=== PATIENT | female | born 1990 | race Caucasian/White ===

== ENCOUNTER 2020-10-28 03:31 | Emergency (ER) | payer BC, MEDICAID, SELFPAY ==
[2020-10-28 03:33] VITALS: BP 116/68; PULSE 90; RESP 18; TEMP 36.2; O2SAT 100
--- NOTE | 2020-10-28 04:06 | ED.GENADULT ---
HPI - General Adult General Chief complaint: Unspecified Stated complaint: spotting and dizziness while Time Seen by Provider: 10/28/20 03:44 Source: patient Mode of arrival: ambulatory Limitations: no limitations History of Present Illness HPI narrative: This patient is a 30 year old female who presents for evaluation of dizziness and vaginal bleeding. She states tonight she started experiencing dizziness with movement and climbing up ladders. She was at work and she almost fell due to her dizziness so she came to the ER for evaluation. She also reports she develop vaginal spotting at the same time as the dizziness. She denies abdominal pain, vomiting, diarrhea, fever , headache. She found out she was last week with a urine test, but she has not had an ultrasound. Her OBGYN is Dr. Amaya. She reports nausea with this so she is not eating or drinking very much. Related Data Allergies Allergy/AdvReac Type Severity Reaction Status Date / Time bupropion Allergy Severe throat Verified 10/28/20 03:37 closes/ rash cephalexin Allergy Severe rash/throat Verified 10/28/20 03:37 close clindamycin Allergy Severe throat Verified 10/28/20 03:37 close/ rash coconut Allergy Severe rash Verified 10/28/20 03:37 ketorolac Allergy Severe rash/throat Verified 10/28/20 03:37 close naproxen Allergy Severe rash/ Verified 10/28/20 03:37 throat close olanzapine Allergy Severe rash/throat Verified 10/28/20 03:37 close peanut Allergy Severe rash/swelli Verified 10/28/20 03:37 ng tramadol Allergy Severe rash/throat Verified 10/28/20 03:37 close cyclobenzaprine Allergy Hives Verified 10/28/20 03:37 Review of Systems Review of Systems: Narrative: All systems reviewed & are unremarkable except as noted in HPI and below Constitutional: Constitutional: Denies chills and Denies fever(s) ENT: Reports dizziness and Denies neck pain Cardiovascular: Cardiovascular: Denies chest pain with activity and Denies leg edema Respiratory: Respiratory: Denies cough and Denies dyspnea Gastrointestinal: Gastrointestinal: Denies abdominal pain Neurologic: Denies headache(s) [facility] Past Medical History Medical History (Updated 10/28/20 @ 07:01 by Nila Sharif MD) Patient denies medical problems Surgical History Surgical History (Updated 10/28/20 @ 04:10 by Nila Sharif MD) H/O section Social History Social History Gender identity (if verbalized by the patient): Female Sexual Orientation (if Verbalized by the Patient): Straight or Heterosexual Exam Narrative: Exam Narrative: Const: General: cooperative, healthy appearing, no acute distress and well developed HENMT: Head: normal to inspection Ears: hearing grossly normal bilaterally, external ears normal and TM's normal bilaterally Face and sinus: face symmetric Mouth: Yes Normal oral and palatal mucosa present, Yes lip normal, Yes oropharynx normal and Yes moist mucous membranes Resp: Effort & Inspection: normal respiratory effort and able to speak in complete sentences Cardio: Palpation: normal PMI Rate: regular rate Rhythm: regular rhythm GI: GI Palp: Yes Soft to palpation, No Tenderness to palpation present (GI) and No No hepatosplenomegaly present Auscultation: normal bowel sounds Skin: General skin exam: normal color Neuro: General: patient oriented x3, gait normal, moves all extremities and CN's II-XI intact bilaterally Course Reevaluation(s) Reevaluation #1: I Discussed with patient that her test is negative. She has no abdominal pain so will discharge. Her dizziness has resolved. Date: 10/28/20 Time: 06:59 Vital Signs Vital signs: Vital Signs Temperature 97.2 F L 10/28/20 03:33 Pulse Rate 90 10/28/20 03:33 Respiratory Rate 18 10/28/20 03:33 Blood Pressure 116/68 10/28/20 03:33 Pulse Oximetry 100 10/28/20
[2020-10-28 04:34] LABS: Basophils Percent Auto 0.6 % (0.2-1.2); Eosinophils Percent Auto 0.2 % (0-4.4); Hematocrit 35.6 % (37.0-47.0); Hemoglobin 12.2 g/dL (12.0-15.0); Immature Granulocyte Absolute 0.02 K/mm3 (0.00-0.031); Immature Granulocyte Percent A 0.4 % (0-0.5); Lymphocytes Absolute Auto 1.02 K/mm3 (0.9-3.2); Lymphocytes Percent Auto 19.8 % (18.3-44.2); Mean Corpuscular HGB Conc 34.3 g/dl (32-36); Mean Corpuscular Hemoglobin 31.4 pg (26-34); Mean Corpuscular Volume 91.8 fl (80-100); Monocytes Absolute Auto 0.3 K/mm3 (0.1-0.6); Monocytes Percent Auto 6.6 % (2.6-8.5); Neutrophils Absolute Auto 3.7 K/mm3 (1.3-6.7); Neutrophils Percent Auto 72.4 % (45.5-73.1); Platelet Count Result 241 k/mm3 (150-375); Red Blood Count 3.88 M/mm3 (4.2-5.4); Red Cell Distribution Width 12.8 % (11.5-14.5); White Blood Count 5.1 K/mm3 (4.5-10.0)
[2020-10-28 04:46] LABS: Anion Gap 5 mmol/L (8-16); Blood Urea Nitrogen 12 mg/dL (7-17); Calcium 9.1 mg/dL (8.4-10.2); Carbon Dioxide 28 mmol/L (22-30); Chloride 105 mmol/L (98-107); Estimated CRCL calculation 69 ml/min; Estimated Glomerular Filt Rate > 60; Glucose 107 mg/dL (65-105); Potassium 3.8 mmol/L (3.4-5.0); Sodium 138 mmol/L (137-145)
[2020-10-28 04:54] VITALS: BP 106/66; PULSE 68
[2020-10-28 04:57] VITALS: BP 105/84; PULSE 71
[2020-10-28] MEDS: LACTATED RINGERS 1,000 ML 999 ML IV CONT (04:59)
[2020-10-28 05:01] VITALS: BP 108/77; PULSE 80
[2020-10-28 05:03] LABS: Beta HCG Quantitative < 2.39 mIU/ML
[2020-10-28 05:22] LABS: Add Urine Microscopic? YES; Appearance Urine Cloudy (Clear); Bacteria Urine Trace /hpf; Bilirubin Urine Negative (Negative); Blood Urine 3+ (Negative); Color Urine Yellow (Yellow); Glucose Urine UA Negative (Negative); Ketones Urine Negative (Negative); Leukocyte Esterase Ur Negative LEU/UL (Negative); Mucus Urine Moderate /lpf; Nitrate Urine Negative (Negative); Protein Urine 3+ mg/dL (Negative); RBC Urine >75 /hpf (0-2); Squamous Epithelial Cell Urine Occasional /hpf (Few)
[2020-10-28 05:26] LABS: Specific Grav Ur 1.034 (1.001-1.035)
[2020-10-28 06:00] VITALS: BP 112/67; PULSE 70; RESP 16; O2SAT 100
[2020-10-28] MEDS: MECLIZINE HCL 25 MG TABLET PO (06:09)
[2020-10-28 07:12] VITALS: BP 121/77; PULSE 72; RESP 17; O2SAT 100
== END 2020-10-28 07:14 | disposition home or self-care (01) ==
PROVIDERS: Emergency Provider General Practice
DX: O03.9 Complete or unspecified spontaneous abortion without complication (principal); R42 Dizziness and giddiness
CPT/HCPCS: 36415; 80048; 81001; 81025; 84702; 85025; 85461; 87086; 87088; 96360; 96361; 99284; A9270; J7120

== ENCOUNTER 2021-05-17 22:28 | Emergency (ER) | payer OTHER, BC, MEDICAID, SELFPAY ==
[2021-05-17 22:31] VITALS: BP 119/92; PULSE 127; RESP 24; TEMP 37.1; O2SAT 100
[2021-05-17 22:38] VITALS: PULSE 126
[2021-05-17] MEDS: diphenhydrAMINE HCl INJ 50 MG/ML VIAL IV PUSH (22:39)
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
[2021-05-17] MEDS: methylPREDNISolone SOD SUCC 125 MG VIAL IV PUSH (23:44)
[2021-05-17 23:48] VITALS: PULSE 81; RESP 21
[2021-05-17] MEDS: ALBUTEROL SULFATE NEB 2.5 MG/0.5 ML INH INHALATION (23:49)
[2021-05-17 23:58] VITALS: PULSE 82; RESP 18
[2021-05-18 00:47] VITALS: BP 114/65; PULSE 80; RESP 23; O2SAT 99
[2021-05-18] MEDS: TETANUS,DIPHTHERIA,AC PERTUSSIS ADULT (0.5 ML) BOOSTRIX IM (01:12)
[2021-05-18 01:44] VITALS: BP 107/68; PULSE 82; RESP 21; O2SAT 99
== END 2021-05-18 01:47 | disposition home or self-care (01) ==
PROVIDERS: Emergency Provider Emergency Medicine
DX: T65.893A Toxic effect of other specified substances, assault, initial encounter (principal); R07.0 Pain in throat; S40.812A Abrasion of left upper arm, initial encounter; S40.811A Abrasion of right upper arm, initial encounter; X99.9XXA Assault by unspecified sharp object, initial encounter; Z23 Encounter for immunization
CPT/HCPCS: 90471; 90715; 94640; 96374; 96375; 99284; J1200; J2930

== ENCOUNTER 2022-03-06 11:54 | Emergency (ER) | payer BC, MEDICAID, SELFPAY ==
--- NOTE | ~2022-03-06 | XR_ITS ---
EXAMINATION: XR chest 2V DATE: 03/06/2022 12:56 INDICATION: Cough, fever and lethargy TECHNIQUE: PA and lateral views of the chest were obtained. COMPARISON: None FINDINGS: The lungs are clear with no focal airspace opacities, pulmonary edema, pleural effusion or pneumothor ax. The cardiomediastinal silhouette is normal. Mild thoracic kyphosis with minimal anterior wedging of a couple mid thoracic vertebral bodies and mild to moderate spondylosis. IMPRESSION: 1. No acute cardiopulmonary disease. Reviewed, dictated and finalized at location A.
--- NOTE | ~2022-03-06 | CT_ITS ---
EXAMINATION: CT brain wo con EXAM DATE: 03/06/2022 13:22 INDICATION: Head injury.. TECHNIQUE: Spiral CT of the head was performed without contrast. Axial, coronal and sagittal images were reviewed. The dose-length product (DLP) for this examination was 605.33 mGy-cm. The exposure w as tailored according to patient size, and iterative reconstruction (ASIR) was used as additional dos e reduction technique. There is no prior study for comparison. FINDINGS: There is no acute intraparenchymal hemorrhage. No evidence of intraparenchymal brain mass lesion. No evidence of acute infarction. There is no mass effect or midline shift. The ventricles are normal in size. There are no extra-axial collections. There are no acute calvarial fractures. T he orbits are unremarkable. Soft tissue is unremarkable. The visualized sinuses and mastoid air emily ls are well aerated. IMPRESSION: 1. No acute intracranial findings. Reviewed, dictated and finalized at location A.
[2022-03-06 11:57] VITALS: BP 111/66; PULSE 98; RESP 18; TEMP 36.5; O2SAT 100
--- NOTE | 2022-03-06 12:44 | PC.NURSE ---
Pt off floor to radiology.
[2022-03-06] MEDS: SODIUM CHLORIDE 0.9% IV 1,000 ML 999 ML IV CONT (13:15)
--- NOTE | 2022-03-06 13:16 | PC.NURSE ---
Pt off floor to radiology for head CT
[2022-03-06 13:19] LABS: Basophils Percent Auto 0.5 % (0.2-1.2); Hematocrit 44.2 % (37.0-47.0); Hemoglobin 14.7 g/dL (12.0-15.0); Immature Granulocyte Absolute 0.01 K/mm3 (0.00-0.031); Immature Granulocyte Percent A 0.2 % (0-0.5); Lymphocytes Absolute Auto 0.56 K/mm3 (0.9-3.2); Lymphocytes Percent Auto 13.1 % (18.3-44.2); Mean Corpuscular HGB Conc 33.3 g/dl (32-36); Mean Corpuscular Hemoglobin 31.3 pg (26-34); Mean Platelet Volume 10.6 fl (7.4-10.4); Monocytes Absolute Auto 0.3 K/mm3 (0.1-0.6); Monocytes Percent Auto 7.7 % (2.6-8.5); Neutrophils Absolute Auto 3.4 K/mm3 (1.3-6.7); Neutrophils Percent Auto 78.5 % (45.5-73.1); Platelet Count Result 174 k/mm3 (150-375); Red Cell Distribution Width 11.9 % (11.5-14.5); White Blood Count 4.3 K/mm3 (4.5-10.0)
--- NOTE | 2022-03-06 13:19 | ED.GENADULT ---
HPI - General Adult General Chief complaint: Upper Respiratory Infection Stated complaint: Vomiting, Cough, Conjestion Time Seen by Provider: 03/06/22 12:04 History of Present Illness HPI narrative: Patient is a 31-year-old female who presents ER with cold symptoms since 03/10/2022. Patient reports runny nose with cough. Reports aches throughout the body. No dyspnea. Reports has been taking Robitussin without improvement. Patient reports she was coughing and fell down her stairs on 03/10 as well and had positive loss of consciousness. Reports mild headache since then. Unknown length of LOC. She is on no blood thinners. Patient reports chronic numbness to left arm from a previous injury and no new numbness since then. Related Data Home Medications Medication Instructions Recorded Confirmed No Home Medications 03/06/22 03/06/22 Allergies Allergy/AdvReac Type Severity Reaction Status Date / Time bupropion Allergy Severe throat Verified 03/06/22 12:08 closes/ rash cephalexin Allergy Severe rash/throat Verified 03/06/22 12:08 close clindamycin Allergy Severe throat Verified 03/06/22 12:08 close/ rash coconut Allergy Severe rash Verified 03/06/22 12:08 ketorolac Allergy Severe rash/throat Verified 03/06/22 12:08 close naproxen Allergy Severe rash/ Verified 03/06/22 12:08 throat close olanzapine Allergy Severe rash/throat Verified 03/06/22 12:08 close peanut Allergy Severe rash/swelli Verified 03/06/22 12:08 ng tramadol Allergy Severe rash/throat Verified 03/06/22 12:08 close cyclobenzaprine Allergy Hives Verified 03/06/22 12:08 Review of Systems Review of Systems: All systems reviewed & are unremarkable except as noted in HPI and below Constitutional: Constitutional: Reports chills, Reports fever(s) and Reports weakness ENT: Denies nasal congestion and Denies sore throat Comments: Rhinorrhea Cardiovascular: Cardiovascular: Denies chest pain, Denies rapid heart rate and Denies radiating jaw, neck or arm pain Respiratory: Respiratory: Reports cough, Denies dyspnea and Denies wheezing Gastrointestinal: Gastrointestinal: Denies abdominal pain, Reports nausea and Reports vomiting Musculoskeletal: Musculoskeletal: Denies back pain, Reports myalgias and Denies arthralgias Neurologic: Denies dizziness, Reports headache(s) and Denies focal weakness PMFSH Past Medical History Medical History Allergies Arthritis Asthma Patient denies medical problems Surgical History Surgical History H/O section Social History Social History Smoking status: Current every day smoker Alcohol intake: never Substance use: never 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 HEAD: Normocephalic, atraumatic. EYES: PERRLA and EOMI. ENT: Mucous membranes moist. Normal-appearing posterior oropharynx. CHEST: Clear to auscultation. No respiratory distress. Frequent coughing. HEART: Regular rate and rhythm. Normal peripheral pulses. ABDOMEN: Soft, nontender, nondistended. EXTREMITIES: Normal range of motion. No edema. SKIN: Warm, dry, no rash. NEURO: Alert and oriented x3. PSYCH: Normal mood and affect. Course Course Emergency Course: Patient outside the window for Tamiflu. Hydrated. Informed of results. Discharge home. Vital Signs Vital signs: Vital Signs Temperature 97.7 F 03/06/22 11:57 Pulse Rate 98 03/06/22 11:57 Respiratory Rate 18 03/06/22 11:57 Blood Pressure 111/66 03/06/22 11:57 Pulse Oximetry 100 03/06/22 11:57
[2022-03-06 13:31] LABS: Alanine Aminotransferase 15 U/L (4-35); Albumin Level 4.7 g/dL (3.5-5.1); Alkaline Phosphatase 54 U/L (38-126); Anion Gap 14 mmol/L (8-16); Aspartate Amino Transferase 34 U/L (14-36); Bilirubin,Total 0.4 mg/dL (0.2-1.3); Blood Urea Nitrogen 13 mg/dL (7-17); Calcium 8.7 mg/dL (8.4-10.2); Carbon Dioxide 20 mmol/L (22-30); Chloride 95 mmol/L (98-107); Estimated CRCL calculation 84 ml/min; Estimated Glomerular Filt Rate > 60; Glucose 81 mg/dL (65-110); Potassium 4.1 mmol/L (3.4-5.0); Sodium 129 mmol/L (137-145)
[2022-03-06 13:57] LABS: Influenza A QL RT-PCR Positive (Negative); Influenza B QL RT-PCR Negative (Negative); SARS-CoV-2 RNA PCR Negative
[2022-03-06 15:09] VITALS: BP 107/66; PULSE 80; RESP 18; TEMP 36.9; O2SAT 100
== END 2022-03-06 15:09 | disposition home or self-care (01) ==
PROVIDERS: Emergency Provider Emergency Medicine
DX: J10.1 Influenza due to other identified influenza virus with other respiratory manifestations (principal); S06.9X9A Unspecified intracranial injury with loss of consciousness of unspecified duration, initial encounter; Z20.822 Contact with and (suspected) exposure to COVID-19; J45.909 Unspecified asthma, uncomplicated; M19.90 Unspecified osteoarthritis, unspecified site; F17.200 Nicotine dependence, unspecified, uncomplicated; W10.9XXA Fall (on) (from) unspecified stairs and steps, initial encounter
CPT/HCPCS: 36415; 70450; 71046; 80053; 85025; 87502; 96360; 99284; C9803; J7030; U0003; U0005

== ENCOUNTER 2023-06-17 22:43 | Observation (INO) | payer OTHER, MEDICAID, SELFPAY ==
--- NOTE | ~2023-06-17 | US_ITS ---
EXAMINATION: US soft tissue LE RT DATE: 06/18/2023 16:33 INDICATION: Right lower limb abscess. TECHNIQUE: Multiple grayscale and Doppler ultrasound images of the right lower limb were obtained. COMPARISON: None FINDINGS: There is echogenic subcutaneous fat in the weeks, consistent with cellulitis. No abscess. IMPRESSION: 1. Cellulitis of the weeks. No abscess. Reviewed, dictated and finalized at location A.
[2023-06-17 22:45] VITALS: BP 116/75; PULSE 90; RESP 19; TEMP 36.7; O2SAT 100
[2023-06-18] VITALS (13 sets, daily range): BP systolic 107–128; BP diastolic 75–93; PULSE 57–98; RESP 14–16; TEMP 36.2–36.4; O2SAT 97–100; BMI 20.3
--- NOTE | 2023-06-18 02:03 | ED.GENADULT ---
HPI - General Adult General Chief complaint: Skin/Abscess/Foreign Body Stated complaint: Spider bite to right weeks Time Seen by Provider: 06/18/23 01:41 Source: patient Mode of arrival: ambulatory Limitations: no limitations History of Present Illness HPI narrative: This is a 32-year-old female who presents to the ED with chief complaint of right weeks infection. Patient states that she was seen by her PCP initially for this and received a 10-day course of doxycycline. She states she took it through its full course and she is still having spreading redness and increased drainage from the central wound. She states this all started after a spider bite a couple of weeks ago. States she is now having fevers up to 102 ?F at home with intermittent nausea and chills. Also reports general malaise. Describes the pain in the leg as burning. Denies any further complaint. Related Data Home Medications Medication Instructions Recorded Confirmed No Home Medications 03/06/22 03/06/22 Allergies Allergy/AdvReac Type Severity Reaction Status Date / Time bupropion Allergy Severe throat Verified 06/17/23 22:44 closes/ rash cephalexin Allergy Severe rash/throat Verified 06/17/23 22:44 close clindamycin Allergy Severe throat Verified 06/17/23 22:44 close/ rash coconut Allergy Severe rash Verified 06/17/23 22:44 ketorolac Allergy Severe rash/throat Verified 06/17/23 22:44 close naproxen Allergy Severe rash/ Verified 06/17/23 22:44 throat close olanzapine Allergy Severe rash/throat Verified 06/17/23 22:44 close peanut Allergy Severe rash/swelli Verified 06/17/23 22:44 ng tramadol Allergy Severe rash/throat Verified 06/17/23 22:44 close cyclobenzaprine Allergy Hives Verified 06/17/23 22:44 PMFSH Past Medical History Medical History Allergies Arthritis Asthma Patient denies medical problems Surgical History Surgical History H/O section Social History Social History Smoking status: Current every day smoker Alcohol intake: never Substance use: never Living arrangements: alone Occupation/Education: occupation 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 HEAD: Normocephalic, atraumatic. EYES: PERRLA and EOMI. ENT: Nares clear, no rhinorrhea or epistaxis. Mucous membranes moist. Oropharynx without tonsillar hypertrophy exudate or other lesions. NECK: Supple. No adenopathy or masses. CHEST: No respiratory distress. Clear to auscultation. No wheezes rales or rhonchi HEART: Regular rate and rhythm. No murmur heard. Normal peripheral pulses. ABDOMEN: Soft, nontender, nondistended, normal active bowel sounds. MSK: Normal range of motion. No edema. SKIN: 4 x 4 centimeter area of erythema to the right weeks anteriorly. There is a central draining wound with purulent material. NEURO: Alert and oriented x3. No focal deficits. PSYCH: Normal mood and affect. Course Vital Signs Vital signs: Vital Signs Temperature 98.0 F 06/17/23 22:45 Pulse Rate 90 06/17/23 22:45 Respiratory Rate 19 06/17/23 22:45 Blood Pressure 116/75 06/17/23 22:45 Pulse Oximetry 100 06/17/23 22:45 Oxygen Delivery Room Air 06/17/23 22:45 Temperature 98.0 F 06/17/23 22:45 Pulse Rate 90 06/17/23 22:45 Respiratory Rate 19 06/17/23 22:45 Blood Pressure 116/75 06/17/23 22:45 Pulse Oximetry 100 06/17/23 22:45 Oxygen Delivery Room Air 06/17/23 22:45 Medical Decision Making MDM Narrative Medical decision making narrative: This is
[2023-06-18] MEDS: ACETAMINOPHEN 500 MG TABLET 1000 MG PO (03:35)
[2023-06-18 03:38] LABS: Basophils Percent Auto 0.4 % (0.2-1.2); Eosinophils Percent Auto 0.5 % (0-4.4); Hematocrit 35.2 % (37.0-47.0); Hemoglobin 11.8 g/dL (12.0-15.0); Immature Granulocyte Absolute 0.01 K/mm3 (0.00-0.031); Immature Granulocyte Percent A 0.2 % (0-0.5); Lymphocytes Percent Auto 32.3 % (18.3-44.2); Mean Corpuscular HGB Conc 33.5 g/dl (32-36); Mean Corpuscular Hemoglobin 31.1 pg (26-34); Mean Corpuscular Volume 92.6 fl (80-100); Mean Platelet Volume 10.4 fl (7.4-10.4); Monocytes Absolute Auto 0.4 K/mm3 (0.1-0.6); Monocytes Percent Auto 7.2 % (2.6-8.5); Neutrophils Absolute Auto 3.3 K/mm3 (1.3-6.7); Neutrophils Percent Auto 59.4 % (45.5-73.1); Platelet Count Result 233 k/mm3 (150-375); Red Cell Distribution Width 12.2 % (11.5-14.5); White Blood Count 5.6 K/mm3 (4.5-10.0)
[2023-06-18 03:51] LABS: Alanine Aminotransferase 15 U/L (6-35); Albumin Level 4.1 g/dL (3.5-5.1); Alkaline Phosphatase 47 U/L (38-126); Anion Gap 7 mmol/L (8-16); Aspartate Amino Transferase 24 U/L (14-36); Bilirubin,Total 0.2 mg/dL (0.2-1.3); Blood Urea Nitrogen 10 mg/dL (7-17); CRP < 0.5 mg/dL (<1.0); Calcium 9.1 mg/dL (8.4-10.2); Carbon Dioxide 23 mmol/L (22-30); Chloride 104 mmol/L (98-107); Estimated CRCL calculation 76 ml/min; Estimated Glomerular Filt Rate > 60; Glucose 101 mg/dL (65-110); Potassium 3.2 mmol/L (3.4-5.0); Sodium 134 mmol/L (137-145)
[2023-06-18] MEDS: POTASSIUM CHLORIDE 20 MEQ PACKET (FOR LIQUID) PO (04:56)
[2023-06-18] MEDS: SODIUM CHLORIDE 0.9% IV 1,000 ML 125 ML IV CONT ×3 (04:56→22:03)
[2023-06-18] MEDS: VANCOMYCIN 1,000 MG/NS 250 ML 1,000 MG/250 ML BAG 250 MG IVPB ×2 (04:56→16:56)
[2023-06-18] MEDS: ACETAMINOPHEN 325 MG TABLET 650 MG PO ×3 (06:43→22:03)
--- NOTE | 2023-06-18 09:11 | PM.IMHP ---
H&P: HPI History of Present Illness Date/Time: 06/18/23 09:11 Chief Complaint: fever, malaise, and insect bite Narrative: This is a 32-year-old female with a past medical history of asthma as a child. She presents to [facility] the ER with complaints of fever, headache, and nonhealing cellulitis to the right lower extremity. She says that she recently was seen by her PCP for this suspected insect bite and was given a course of doxycycline for 10 days. She completed her antibiotics but she still has systemic symptoms including a reported fever of 102. She says that since 06/10 her wound has been draining fluid ranging in description from dark brown to yellow to green. She complains of pain to her right lower weeks that travels down to her right ankle. She also complains of nausea, decreased appetite, weakness, fatigue, and intermittent fevers. The symptoms have been going on for the last 10 days since she started the doxycycline. She anticipated that she finished her antibiotics that her symptoms would improve but instead they remain and her pain is worse. She is being admitted for IV antibiotics, IV fluids, and further investigation of her cellulitis. Wound cultures have been obtained and are pending. Review of Systems Review of Systems: All systems reviewed & are unremarkable except as noted in HPI and below PMFSH Past Medical History Medical History Allergies Arthritis Asthma Patient denies medical problems Surgical History Surgical History H/O section Social History Social History Smoking packs per day: 2 Smoking cigarettes per day: 40.0 Years smoked: 10 Smoking pack-years: 20.00 Smoking status: Former smoker Alcohol intake: never Substance use: never Lack of Transportation: No Lack of Food: Never True Current Housing: I Have Housing Concerned About Future Housing: No Difficulty Paying Gas/Electric Bills: No Difficulty Paying for Meds: No Currently Unemployed: No Education: High School Diploma/GED Difficulty w/ Childcare or Family Care: No Living arrangements: alone Occupation/Education: occupation 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 Gender identity (if verbalized by the patient): Female Sexual Orientation (if Verbalized by the Patient): Straight or Heterosexual Spiritual care concerns: No Meds Home Medications and Allergies Home Medications Medication Instructions Recorded Confirmed Type mupirocin 2 % topical ointment 1 applic topical BID 06/18/23 06/18/23 History Allergies Allergy/AdvReac Type Severity Reaction Status Date / Time bupropion Allergy Severe throat Verified 06/17/23 22:44 closes/ rash cephalexin Allergy Severe rash/throat Verified 06/17/23 22:44 close clindamycin Allergy Severe throat Verified 06/17/23 22:44 close/ rash coconut Allergy Severe rash Verified 06/17/23 22:44 ketorolac Allergy Severe rash/throat Verified 06/17/23 22:44 close naproxen Allergy Severe rash/ Verified 06/17/23 22:44 throat close olanzapine Allergy Severe rash/throat Verified 06/17/23 22:44 close peanut Allergy Severe rash/swelli Verified 06/17/23 22:44 ng tramadol Allergy Severe rash/throat Verified 06/17/23 22:44 close cyclobenzaprine Allergy Hives Verified 06/17/23 22:44 Vital Signs Vital Signs - 24 hr 06/17/23 22:45 06/18/23 03:37 06/18/23 03:38 Temperature 98.0 F Pulse Rate 90 Respiratory Rate 19 Blood Pressure 116/75 Pulse Oximetry 100 99 97 Oxygen Delivery Room Air 06/18/23 03:45 06/18/23 04:00 06/18/23 04:01 Temperature Pulse Rate Respiratory Rate Blood Pressure 110/75 Pulse Oximetry 99 98 99 Oxygen Delivery 06/18/23 04:15 06/18/23 04:33 06/18/23
[2023-06-18] MEDS: POTASSIUM CHLORIDE 20 MEQ PACKET (FOR LIQUID) 40 MEQ PO (10:04)
[2023-06-18] MEDS: POTASSIUM CHLORIDE INJ 40 MEQ in SODIUM CHLORIDE 0.9% IV 500 ML 50 MEQ IVPB (14:48)
[2023-06-18] MEDS: ONDANSETRON INJ 4 MG/2 ML VIAL IV PUSH (15:20)
[2023-06-18] MEDS: MORPHINE SULFATE (*CRX) 2 MG/ML INJ IV PUSH (15:22)
[2023-06-19] MEDS: HYDROmorphone HCL INJ (*CRX) 1 MG/ML SYR IV PUSH (00:32)
[2023-06-19] MEDS: LORazepam INJ (*CRX) 2 MG/ML VIAL 1 MG IV PUSH (01:12)
[2023-06-19] MEDS: diphenhydrAMINE HCl INJ 50 MG/ML VIAL 25 MG IV PUSH (01:22)
[2023-06-19] MEDS: VANCOMYCIN 1,000 MG/NS 250 ML 1,000 MG/250 ML BAG 250 MG IVPB (05:22)
[2023-06-19 06:00] VITALS: BP 104/65; PULSE 68; RESP 18; TEMP 36.4; O2SAT 99
[2023-06-19 06:39] LABS: Estimated CRCL calculation 105 ml/min; Estimated Glomerular Filt Rate > 60
[2023-06-19] MEDS: ONDANSETRON INJ 4 MG/2 ML VIAL IV PUSH (08:32)
--- NOTE | 2023-06-19 08:33 | PM.DS ---
DS: Admitting Diagnosis Discharge Date SundayJune 19 Admitting Diagnosis cellulitis DS: Discharge Diagnosis Discharge Diagnosis (1) Cellulitis of leg, right: Code(s): L03.115 - Cellulitis of right lower limb Status: Acute Assessment and Plan: Status post ten-day treatment with doxycycline for cellulitis suspected to be caused by an insect bite no leukocytosis on admission patient reports fevers of 102 at home currently has been afebrile IV vancomycin ordered while we wait for wound culture patient has been nauseous IV fluids are ordered and p.r.n. Zofran available 1 time dose of IV morphine for pain otherwise can have p.r.n. Tylenol ultrasound of right lower extremity ordered to rule out abscess formation potassium was 2.7, replace with IV potassium DS: Summary Hospital Course Hospital Course: Chief Complaint: fever, malaise, and insect bite Narrative: ? This is a 32-year-old female with a past medical history of asthma as a child.? She presents to [facility] with complaints of fever, headache, and nonhealing cellulitis to the right lower extremity.? She says that she recently was seen by her PCP for this suspected insect bite and was given a course of doxycycline for 10 days.? She completed her antibiotics but she still has systemic symptoms including a reported fever of 102. She says that since? 06/10? her wound has been draining fluid ranging in description from dark brown to yellow to green. ? She complains of pain to her right lower weeks? that travels down to her right ankle. ? She also complains of nausea, decreased appetite, weakness, fatigue, and intermittent fevers. ? The symptoms have been going on for the last 10 days since she started the doxycycline.? She anticipated that she finished her antibiotics that her symptoms would improve but instead they remain and her pain is worse. ? She is being admitted for IV antibiotics, IV fluids, and further investigation of her cellulitis.? Wound cultures have been obtained and are pending. Interval history: 06/19: Seen this morning in bed resting. Says she had a bad night. I spoke with the bedside nurse who said that the patient had throat swelling/itching, tongue swelling after starting her vancomycin. She was treated with steroids and Benadryl and her symptoms resolved allowing her to finish the vanco. I had intentions of discharging her with bactrim but after speaking with the patient she is also allergic to bactrim, reporting similar symptoms of keflex and clinda reactions. I added this to her allergy list. Her wound culture is growing GPC so this makes d/c with oral agent difficult. I have reached out to ID pharmacist for assistance. Her cellulitis looks much improved today. The area is still draining yellow fluid but the redness has nearly resolved. She still reports pain with palpation surrounding the area. Spoke with ID pharmacist who recommends linezolid. Time Spent with Patient Time attestation: Total time spent providing and/or coordinating discharge services:32 Exam Narrative: General: 32-year-old female, laying in bed, appears uncomfortable, NARD Neuro: awake, alert and oriented x4, speech clear, no focal neuro deficits noted HEENMT: normocephalic, atraumatic, EOMI, sclerae anicteric, moist oral mucosa Respiratory: Clear to auscultation bilaterally without crackles, rhonchi or wheezes, nonlabored breathing Cardio: regular rate, regular rhythm with S1-S2 Abdomen: nondistended, normoactive bowel sounds, soft, nontender to palpation Extremities: no edema, RLE with erythema, and warmth, Right ankle appears slightly more edematous than the left but no pitting present. DP pulses 2+ bilaterally Skin:warm and dry, lesion to right lateral weeks that appears open but currently not draining surrounded by erythema and warmth, scant fluctuation noted. Psych: appropriate mood and affect, judgment and insight intact DS: Data Data Completed and Pendin
[2023-06-19] MEDS: SODIUM CHLORIDE 0.9% IV 1,000 ML 125 ML IV CONT (08:36)
[2023-06-19] MEDS: ACETAMINOPHEN 325 MG TABLET 650 MG PO ×2 (08:39→15:13)
[2023-06-19 08:47] LABS: Basophils Percent Auto 0.4 % (0.2-1.2); Eosinophils Percent Auto 0.7 % (0-4.4); Hematocrit 33.5 % (37.0-47.0); Hemoglobin 10.8 g/dL (12.0-15.0); Immature Granulocyte Absolute 0.01 K/mm3 (0.00-0.031); Immature Granulocyte Percent A 0.2 % (0-0.5); Lymphocytes Absolute Auto 1.56 K/mm3 (0.9-3.2); Lymphocytes Percent Auto 34.5 % (18.3-44.2); Mean Corpuscular HGB Conc 32.2 g/dl (32-36); Mean Corpuscular Hemoglobin 30.9 pg (26-34); Mean Corpuscular Volume 95.7 fl (80-100); Mean Platelet Volume 11.5 fl (7.4-10.4); Monocytes Absolute Auto 0.3 K/mm3 (0.1-0.6); Monocytes Percent Auto 5.5 % (2.6-8.5); Neutrophils Absolute Auto 2.7 K/mm3 (1.3-6.7); Neutrophils Percent Auto 58.7 % (45.5-73.1); Platelet Count Result 213 k/mm3 (150-375); Red Cell Distribution Width 12.4 % (11.5-14.5); White Blood Count 4.5 K/mm3 (4.5-10.0)
[2023-06-19 09:15] LABS: Anion Gap 1 mmol/L (8-16); Blood Urea Nitrogen 4 mg/dL (7-17); Calcium 7.8 mg/dL (8.4-10.2); Carbon Dioxide 18 mmol/L (22-30); Chloride 112 mmol/L (98-107); Estimated CRCL calculation 105 ml/min; Estimated Glomerular Filt Rate > 60; Glucose 89 mg/dL (65-110); Potassium 4.2 mmol/L (3.4-5.0); Sodium 131 mmol/L (137-145)
--- NOTE | 2023-06-19 10:40 | PM.IMPN ---
Progress Note: A&P Assessment and Plan (1) Cellulitis of leg, right: Code(s): L03.115 - Cellulitis of right lower limb Status: Acute Assessment and Plan: Status post ten-day treatment with doxycycline for cellulitis suspected to be caused by an insect bite no leukocytosis on admission patient reports fevers of 102 at home currently has been afebrile IV vancomycin ordered while we wait for wound culture patient has been nauseous IV fluids are ordered and p.r.n. Zofran available 1 time dose of IV morphine for pain otherwise can have p.r.n. Tylenol ultrasound of right lower extremity ordered to rule out abscess formation potassium was 2.7, replace with IV potassium Plan -checking with ID pharmacist on his recommendations for abx. -stop IVF, continue regular diet - Subjective Date/time seen: 06/19/23 10:40 Interval history: Narrative: ? This is a 32-year-old female with a past medical history of asthma as a child.? She presents to [facility] with complaints of fever, headache, and nonhealing cellulitis to the right lower extremity.? She says that she recently was seen by her PCP for this suspected insect bite and was given a course of doxycycline for 10 days.? She completed her antibiotics but she still has systemic symptoms including a reported fever of 102. She says that since? 06/10? her wound has been draining fluid ranging in description from dark brown to yellow to green. ? She complains of pain to her right lower weeks? that travels down to her right ankle. ? She also complains of nausea, decreased appetite, weakness, fatigue, and intermittent fevers. ? The symptoms have been going on for the last 10 days since she started the doxycycline.? She anticipated that she finished her antibiotics that her symptoms would improve but instead they remain and her pain is worse. ? She is being admitted for IV antibiotics, IV fluids, and further investigation of her cellulitis.? Wound cultures have been obtained and are pending. Interval history: 06/19: Seen this morning in bed resting. Says she had a bad night. I spoke with the bedside nurse who said that the patient had throat swelling/itching, tongue swelling after starting her vancomycin. She was treated with steroids and Benadryl and her symptoms resolved allowing her to finish the vanco. I had intentions of discharging her with bactrim but after speaking with the patient she is also allergic to bactrim, reporting similar symptoms of keflex and clinda reactions. I added this to her allergy list. Her wound culture is growing GPC so this makes d/c with oral agent difficult. I have reached out to ID pharmacist for assistance. Her cellulitis looks much improved today. The area is still draining yellow fluid but the redness has nearly resolved. She still reports pain with palpation surrounding the area. Review of Systems Review of Systems: All systems reviewed & are unremarkable except as noted in HPI and below Exam Narrative: General: 32-year-old female, laying in bed, appears uncomfortable, NARD Neuro: awake, alert and oriented x4, speech clear, no focal neuro deficits noted HEENMT: normocephalic, atraumatic, EOMI, sclerae anicteric, moist oral mucosa Respiratory: Clear to auscultation bilaterally without crackles, rhonchi or wheezes, nonlabored breathing Cardio: regular rate, regular rhythm with S1-S2 Abdomen: nondistended, normoactive bowel sounds, soft, nontender to palpation Extremities: no edema, resoliving RLE with erythema, and warmth,DP pulses 2+ bilaterally Skin:warm and dry, lesion to right lateral weeks that appears open but currently not draining surrounded by erythema and warmth, scant fluctuation noted. Psych: appropriate mood and affect, judgment and insight intact Objective Data Vital Signs Vital Signs: Vital Signs - 24 hr 06/18/23 14:00 06/18/23 22:00 06/18/23 20:00 Temperature 97.4 F L 97.1 F L Pulse Rate 58 L 57 L Respiratory Rate
[2023-06-19] MEDS: LINEZOLID 600 MG TABLET PO (13:00)
[2023-06-19 14:00] VITALS: BP 109/64; PULSE 64; RESP 14; TEMP 37.3; O2SAT 99
--- NOTE | 2023-06-19 16:05 | PCCCNOTE ---
On 06/19/23, the student, [Angely Waldron], provided care and completed [facility] documentation on this patient. I have reviewed the student's documentation and agree with the findings.
--- NOTE | 2023-06-19 17:35 | PC.NURSE ---
patient called to say that she was unable to get the silver sept topical medication r/t insurance coverage. I called Dr. Diaz (who is covering for Jadyn.). Dr. Diaz gave orders to substitute to any silver topical medication that is covered by her insurance. I talked with the pharmacist and they substituted the medication. patient notified.
== END 2023-06-19 17:00 | disposition home or self-care (01) ==
LOC: ANHED 06-18 04:05 → ANH3MEDSUR 06-18 05:27
PROVIDERS: Nurse Practitioner Acute Care; Admitting Provider Internal Medicine; Emergency Provider Physician Assistant; Visit Provider Student in an Organized Health Care Education/Training Program
DX: L03.115 Cellulitis of right lower limb (principal); B95.61 Methicillin susceptible Staphylococcus aureus infection as the cause of diseases classified elsewhere; M19.90 Unspecified osteoarthritis, unspecified site; F17.210 Nicotine dependence, cigarettes, uncomplicated; R63.0 Anorexia; R53.1 Weakness; R53.83 Other fatigue; Z68.20 Body mass index [BMI] 20.0-20.9, adult; Z79.899 Other long term (current) drug therapy
CPT/HCPCS: 36415; 76882; 80048; 80053; 82565; 85025; 86140; 87040; 87070; 87147; 87181; 87186; 87205; 96361; 96365; 96366; 96367; 96375; 99285; A9270; G0378; J1170; J1200; J2060; J2270; J2405; J3370; J3480; J7030; J7040